=== PATIENT | female | born 1970 | race Caucasian/White ===

== ENCOUNTER → 2018-09-30 09:39 | Outpatient (CLI) | payer OTHER, MEDICAID, SELFPAY ==
--- NOTE | 2018-09-30 | DI.MG.S_ITS ---
BILATERAL DIGITAL SCREENING MAMMOGRAM 3D/2D WITH CAD: 09/30/2018 CLINICAL: Routine screening. Baseline exam. Family history of breast cancer. No prior exams were available for comparison. The tissue of both breasts is heterogeneously dense. This may lower the sensitivity of mammography. Current study was also evaluated with a Computer Aided Detection (CAD) system. No significant masses, calcifications, or other findings are seen in either breast. IMPRESSION: NEGATIVE There is no mammographic evidence of malignancy. A 1 year screening mammogram is recommended. This exam was interpreted at Station ID: [id number]. NOTE: For mammograms, a report in lay terms will be sent to the patient. Approximately 15% of breast malignancies will not be visualized mammographically. In the management of a palpable breast mass, a negative mammogram must not discourage biopsy of a clinically suspicious lesion. Electronically Signed By: Chaz zapata/esme:09/30/2018 18:24:50 letter sent: Normal Exam ACR BI-RADS Category 1: Negative [id number]
== END ==
PROVIDERS: PCP Family Medicine; Visit Provider Family Medicine
DX: Z12.31 Encounter for screening mammogram for malignant neoplasm of breast (principal); Z80.3 Family history of malignant neoplasm of breast
CPT/HCPCS: 77063; 77067

== ENCOUNTER → 2020-01-21 10:31 | Outpatient (CLI) | payer OTHER, MEDICAID, SELFPAY ==
--- NOTE | 2020-01-21 10:36 | DI.US.S_ITS ---
PROCEDURE: US PELVIC COMPLETE INDICATIONS: MENORRHAGIA TECHNIQUE: Real-time scanning was performed of the pelvic organs, with image documentation. Additional endovaginal scanning was necessary due to incomplete visualization of the adnexal and endometrial structures by transabdominal scanning. COMPARISON: None. FINDINGS: Transabdominal scanning: Limited scanning through the kidneys shows no hydronephrosis. No pathologic free abdominal or pelvic fluid. Endovaginal scanning: Uterus: Uterus is normal in size at 8.4 x 4.7 x 6 x 3 cm. The endometrium measures 11 mm in combined thickness. The cervical mass can be seen on these images. Hypoechoic uterine lesions are seen, which are attributed to fibroids. They measure as follows: Right posterior uterus, submucosal, 1.3 by 1 by 1.5 cm Left anterior uterus, submucosal, 1.2 x 1.2 x 2.1 cm Ovaries: The right ovary measures 3.2 x 2 x 1.5 cm. The left ovary measures 3.7 x 1.8 x 2.7 cm and demonstrates a simple appearing dominant follicle that measures up to 1.8 cm. The ovaries have a normal sonographic appearance. No adnexal masses are seen. IMPRESSION: Submucosal uterine fibroids are seen that measure up to 2.1 cm. Dictated by: Edgardo Chung M.D. on 01/21/2020 at 11:01 Approved by: Edgardo Chung M.D. on 01/21/2020 at 11:03
== END ==
PROVIDERS: PCP Family Medicine; Referring Provider Obstetrics & Gynecology; Visit Provider Obstetrics & Gynecology
DX: N92.0 Excessive and frequent menstruation with regular cycle (principal); D25.0 Submucous leiomyoma of uterus
CPT/HCPCS: 76856

== ENCOUNTER 2020-02-19 10:48 | Day surgery (SDC) | payer OTHER, MEDICAID, SELFPAY ==
[2020-02-12 08:34] VITALS: BMI 29.0
[2020-02-19] VITALS (7 sets, daily range): BP systolic 149–165; BP diastolic 84–100; PULSE 66–83; RESP 8–16; TEMP 36.4–36.6; O2SAT 97–100; BMI 28.1
--- NOTE | 2020-02-19 | PATH_ITS ---
[facility] Accession Number: [id number] . 01 Material submitted: . PART A: endometrium - ENDOMETRIAL BIOPSY PART B: cervix - CERVICAL CONE BIOPSY PART C: cervix - POSTERIOR CERVIX PART D: endocervix - DEEPER ENDOCERVICAL SPECIMEN . 02 Diagnosis: A. Endometrial Biopsy: Patchy glandular crowding in a background of disordered proliferative endometrium with stromal breakdown; negative for cytologic atypia or malignancy. . B. Cervical Cone Biopsy: Small region of dysplasia, favor high grade squamous intraepithelial lesion / DEMETRIA-2 and adjacent and separate regions of low-grade squamous intraepithelial lesion/DEMETRIA-1. Both the region concerning for high grade squamous intraepithelial lesion / DEMETRIA-2 and low-grade squamous intraepithelial lesion/DEMETRIA-1 are present at a cauterized endocervical margin. The ectocervical margin is negative for dysplasia. Changes consistent with previous instrumentatino are present. Negative for invasive tumor. . C. Posterior Cervix, Cone Biopsy: Focal involvement by high-grade squamous intraepithelial lesion/DEMETRIA-2 and separate regions of focal, mild involvement by low-grade squamous intraepithelial lesion/DEMETRIA-1. The apparent endocervical margin is negative for dysplasia. The apparent ectocervical margin is negative for dysplasia. No invasive tumor identified. . D. Deeper Endocervical Specimen: Endocervical tissue; negative for glandular dysplasia or malignancy. Changes consistent with previous instrumentation are present. Negative for atypia or malignancy. [facility] 02/23/2020 1324 Local . 02 Electronically signed: . Milena Guzman MD, Pathologist NPI- [id number] . 01 Gross description: . Specimen A is received in formalin, labeled with patient identification and endometrial biopsy. It consists of multiple dark red to yellow-moser soft tissue pieces admixed with blood clot measuring 2.3 x 1.5 x 0.3 cm in aggregate. The entire specimen is filtered and submitted in one cassette. . Summary of sections: A1 - multiple pieces. . Specimen B is received in formalin, labeled with patient identification and lip cervical cone biopsy. It consists of two yellow-moser irregular soft tissue pieces measuring 1.5 x 1.0 x 0.4 cm and 3.0 x 1.3 x 0.6 cm. The ectocervical mucosa is yellow-moser and finely rough. The endocervical mucosa is inked orange and the deep surface is inked blue. Sectioning reveals homogeneously yellow-moser and smooth cut surfaces. The entire specimen is submitted in four cassettes. . Summary of sections: B1 - entire sectioned smaller piece, five pieces. B2-B4 - entire sectioned larger piece, three pieces each. . Specimen C is received in formalin, labeled with patient identification and posterior cervix. It consists of a yellow-moser soft tissue piece measuring 2.7 x 1.0 x 0.8 cm. The ectocervical mucosa is pink-moser, dull, and smooth. The endocervical mucosa is inked orange and the deep surface is inked blue. Sectioning reveals homogeneously yellow-moser and smooth cut surfaces. The entire specimen is submitted in three cassettes. . Summary of sections: C1-C2 - three pieces each. C3 - four pieces. . Specimen D is received in formalin, labeled with patient identification and deeper endocervical specimen. It consists of a yellow-moser and irregular soft tissue piece measuring 3.5 x 1.0 x 0.3 cm. The entire outer surface is inked blue. Sectioning reveals homogeneously white-moser and smooth cut surfaces. The entire specimen is submitted in four cassettes. . Summary of sections: D1-D4 - three pieces each. ([id number]) /MRV 02/20/2020 1039 Local . 02 Pathologist provided ICD-10: N87.1, N84.1, Z30.430 . 02 CPT . 292333, 175240, 283006, [id number] Performed at: 01 [facility] [address] [id number] MD Jose Valles MD Phone: [phone] Performed at: 02 [facility] [place] [address] [place] [id number] MD Luda Duncan MD Phone: [phone]
[2020-02-19] MEDS: SCOPOLAMINE 1 PATCH TOP (11:28)
[2020-02-19] MEDS: GABAPENTIN 300 MG CAPSULE PO (11:28)
[2020-02-19] MEDS: ACETAMINOPHEN 325 MG TABLET 975 MG PO (11:28)
--- NOTE | 2020-02-19 11:39 | PM.PREOP ---
Pre-operative Note COVID-19 COVID-19 status: Negative Result date/Date tested (Pos, Neg/Pending): 02/17/20 Interval Note History & Physical reviewed/Exam performed by Physician: Yes Changes to H&P: No
[2020-02-19] MEDS: LACTATED RINGERS 1,000 ML 42 ML IV (11:40)
--- NOTE | 2020-02-19 12:16 | SUR.OPER ---
Lithotomy on padded OR bed, head on pillow, arms secured on padded arm boards at <90 degrees abduction. Legs secured in padded yellow fins stirrups.
[2020-02-19] MEDS: ACETIC ACID 500 ML IRRIG 20 ML TOP (12:27)
[2020-02-19] MEDS: LIDOCAINE 1% W/EPI 20 ML INJ (12:36)
--- NOTE | 2020-02-19 13:51 | P.OP_ITS ---
Operative Date/Time/Diagnoses Date of procedure: 02/19/20 Time of procedure: 13:10 Pre-op diagnosis: DEMETRIA 2 of cervix, cervical polyp, menorrhagia with regular cycle Post-op diagnosis: other (No visible cervical polyp present (at start of procedure).) Procedure & Clinicians Procedure: Colposcopy, loop electrocautery excision procedure of the cervix, endometrial biopsy, placement of Mirena progesterone IUD Same procedure as scheduled: No (No cervical polyp was present, thus a cervical polyp was not removed) Indications: DEMETRIA 2 of the cervix. Small cervical polyp on office exam. Menorrhagia, small fibroid uterus. Desired Mirena IUD placement for attempted treatment of the heavy menses. Surgeon: Karin Leonardo Click Yes if Unassisted: Yes Anesthesia Type: General Operative Notes Findings: Aceto-white changes noted on colposcopy over the cervix, consistent with DEMETRIA 2 by prior biopsy. No cervical polyp present. Uterus sounded to 8 cm prior to LEEP. Closure Type: not applicable Specimen(s): other (1. Endometrial biopsy 2. Cervical cone biopsy 3. Posterior cervical specimen 4. Deeper endocervical specimen) Estimated Blood Loss (mL): 3 Blood products transfused: none Procedure in detail: After being properly identified she was taken operating room. SCDs were in place. After an adequate level of anesthesia was obtained she was placed in Luis Angel stirrups in the dorsal lithotomy position. She was prepped and draped in routine sterile fashion. A coated speculum was placed. The cervix was visualized. The cervix grossly appeared normal. No cervical polyp was seen. The cervix was visualized with the colposcope. Dilute ascetic acid was placed over the cervix and repeat visualization was performed. Mild aceto-white area, irregular shape, was noted on the cervix anteriorly from 11-2 o'clock. Also area of aceto-white from 4-6 o'clock. Both areas were within the transformation zone. Tzone extended about 2 cm on to the cervical portio. There were no areas of aceto-white outside of the transformation zone. Next the anter ior cervix was grasped with a single-tooth tenaculum. An endometrial Pipelle was used. The uterus sounded to 8 cm. Global curettage was performed with the endometrial Pipelle, with four passes. A small amount of tissue was obtained. The cervix was then circumferentially infiltrated with 14 mL of 1% lidocaine with epinephrine. A 20x10 mm loop was used and passed from anterior to posterior through the ecto and endocervical canal. Settings on the cautery was 60, pure cut. With being 2/3 through the area to be excised, in the deeper tissue the loop would no longer pass through. Attempt made to start posteriorly and meet the already excised area, however only a portion of the specimen was then obtained, a superficial portion with some still remaining. On repeat attempt the loop would not pass through. I had increased the Bovie to 70 pure cut, but without success. I then had the staff recheck Bovie, and reset setting was pure cut. With next attempt then the loop glided with ease through the specimen and specimen fully removed. Specimen handed off in 2 pieces. A smaller, 15 x 10 mL loop was then used and a pass was made through a portion of the posterior cervix and handed off as separate specimen. A pass was then made through the endocervix, for a deeper endocervical specimen and handed off as the 3rd LEEP specimen. LEEP was thus performed in a top hat type fashion. The ball tip was placed on the Bovie. Settings were changed to coagulation, setting 35, and some small areas of bleeding were coagulated on the excisional bed. There was a persistent focal area of light bleeding on the posterior cervix, despite the coagulation. This was controlled with Monsel's solution placed to the area after placement of the IUD. An Allis clamp was then placed to the anterior cervix. The uterus was resounded with the endometrial Pipelle and now after the LEEP, uterine length was noted to be 7 cm to the cervical os. The Mirena IUD was then inserted to a depth of 7 cm. IUD strings were trimmed to 4 cm long. Monsel's solution was placed to the focal area of light bleeding on the posterior cervix. Hemostasis was then obtained. Monsel's solution was also placed to the entire excisional bed to assure continued hemostasis. The procedure was ended. She tolerated the procedure well. She was transferred to the recovery room in good condition. Complications: none Post-operative Condition: stable Disposition: PACU Plan for aftercare: Discharge to home. Nothing in the vagina for 4 weeks. Follow-up appointment in 4 weeks for postop visit and IUD check.
--- NOTE | 2020-02-19 13:52 | SUR.PHASEI ---
Stable PACU stay, BP high, pt states it has been high recently and has talked to her PCP. BP near baseline today. Pt denies pain, no nausea. Report to [facility]
== END 2020-02-19 14:15 | disposition home or self-care (01) ==
PROVIDERS: PCP Family Medicine; Referring Provider Family Medicine; Visit Provider Obstetrics & Gynecology
PROC: 0UBC7ZZ Excision of Cervix, Via Natural or Artificial Opening (ICD-10-PCS; CPT 57522; principal; 2020-02-19 11:45)
DX: N87.1 Moderate cervical dysplasia (principal); N87.0 Mild cervical dysplasia; Z30.430 Encounter for insertion of intrauterine contraceptive device; I10 Essential (primary) hypertension
CPT/HCPCS: 58110; 58300; 57460; J1100; J1885; J2250; J2405; J2704; J7298

== ENCOUNTER → 2021-03-03 12:10 | Outpatient (CLI) | payer OTHER, MEDICAID, SELFPAY ==
[2021-03-03 19:56] LABS: Alanine Aminotransferase 13 IU/L (<35); Albumin 4.8 g/dL (3.5-5.0); Albumin Globulin Ratio 1.5 (1.0-2.8); Alkaline Phosphatase 54 U/L (38-126); Aspartate Aminotransferase 26 IU/L (14-36); BUN Creatinine Ratio 19.1 (6-22); Bilirubin Total 0.4 mg/dL (0.2-1.3); Blood Urea Nitrogen 13 mg/dL (7-17); Calcium 9.4 mg/dL (8.4-10.2); Carbon Dioxide 26 mmol/L (22-32); Chloride 104 mmol/L (98-107); Cholesterol 214 mg/dL (140-199); Estimated Glomerular Filt Rate > 60.0 mL/min (>60); Globulin 3.3 g/dL (1.7-4.1); Glucose 92 mg/dL (70-100); HDL Cholesterol 47 mg/dL (40-60); HEMOLYSIS 20 (0-50); LDL Cholesterol Calculated 139 mg/dL (<100); Potassium 4.4 mmol/L (3.4-5.1); Sodium 139 mmol/L (137-145); Total Protein 8.1 g/dL (6.3-8.2); Triglycerides 140 mg/dL (35-150)
[2021-03-03 20:14] LABS: Thyroid Stimulating Hormone 1.12 uIU/mL (0.47-4.68)
== END ==
PROVIDERS: PCP Family Medicine; Visit Provider Family Medicine
DX: I10 Essential (primary) hypertension (principal); Z13.220 Encounter for screening for lipoid disorders; Z13.29 Encounter for screening for other suspected endocrine disorder
CPT/HCPCS: 80053; 80061; 84443